=== PATIENT | male | born 1970 | race Hispanic/Latino ===

== ENCOUNTER 2017-03-30 07:51 | Emergency (ER) | payer MEDICARE ==
[2017-03-30 08:28] LABS: Basophils % (Auto) 1.2 % (0.0-1.8); Eosinophils % (Auto) 1.8 % (0.0-4.3); Hematocrit 38.4 % (35.5-45.6); Hemoglobin 12.4 gm/dl (11.8-15.2); Mean Corpuscular HGB Conc 32 % (32-34); Mean Corpuscular Hemoglobin 28 pg (28-32); Mean Corpuscular Volume 87 fl (84-94); Platelet Count 216 K/mm3 (140-440); Red Blood Count 4.42 M/mm3 (3.65-5.03); White Blood Count 13.8 K/mm3 (4.5-11.0)
[2017-03-30 09:04] LABS: BUN/Creatinine Ratio 8.53; Calcium 8.7 mg/dL (8.4-10.2); Chloride 109.5 mmol/L (98-107); Potassium 5.7 mmol/L (3.6-5.0)
[2017-03-30 11:45] LABS: Alanine Aminotransferase 9 units/L (7-56); Albumin 3.9 g/dL (3.9-5); Alkaline Phosphatase 318 units/L (35-129); Total Protein 7.8 g/dL (6.3-8.2)
[2017-03-30 11:54] LABS: Bilirubin,Direct < 0.2 mg/dL (0-0.2)
[2017-03-30 12:41] VITALS: BP 117/84
--- NOTE | 2017-03-30 12:42 | Emergency Department Report ---
HPI - General Chief Complaint: Medical Clearance Time Seen by Provider: 03/30/17 12:31 - HPI HPI: The patient is a 47-year-old male presenting with a chief complaint sickle cell disease. The patient has a history of end-stage renal disease and usually receives dialysis every Thursday was a Thursday. The patient missed his last for around the dialysis due to "personal problems." The patient states his been somewhat depressed about the possibility of him not being able to receive another renal transplant. Patient denies suicidal ideation. Patient is otherwise asymptomatic. Patient states he feels great and denies shortness of breath. Patient denies swelling Location: [see above] Duration: [see above] Quality: Asymptomatic Severity: Mild Modifying factors: [see above] Context: [see above] Mode of transportation: [not driving] ED Past Medical Hx - Past Medical History Hx Hypertension: Yes Hx GERD: Yes Hx Renal Disease: Yes Hx Arthritis: Yes (KNEES) Hx COPD: Yes Additional medical history: kidney transplant 20 yr ago, renal insufficiency - Surgical History Additional Surgical History: Renal transplant x3; bladder augmentation - Family History Family history: no significant - Social History Smoking Status: Never Smoker Substance Use Type: None - Medications Home Medications: Home Medications Medication Instructions Recorded Confirmed Last Taken Type Pravastatin Sodium 40 mg PO QDAY 08/30/13 10/09/16 09/28/16 22:00 History 40mg Sodium Bicarbonate 650 mg PO BID 08/30/13 10/09/16 09/29/16 08:00 History 650mg cycloSPORINE [SandIMMUNE] 75 mg PO BID 08/30/13 10/09/16 09/29/16 08:00 History Prednisone 10 mg PO DAILY 12/08/14 10/09/16 09/29/16 08:00 History 10mg Ergocalciferol [Vitamin D2] 1 cap PO QWEEK 08/20/16 10/09/16 09/29/16 08:00 History 1 CAP Zolpidem Tartrate 5 mg PO QDAY 08/20/16 10/09/16 09/25/16 History HYDROcodone/APAP 7.5-325 [[place] 1 each PO Q6HR PRN #60 tablet 08/25/16 10/09/16 09/17/16 Rx 7.5-325 mg TAB] Vitamin A 50,000 unit PO DAILY 14 Days 09/25/16 10/09/16 09/29/16 08:00 Rx [id number] Apixaban [Eliquis] 5 mg PO BID 09/29/16 10/09/16 09/28/16 22:00 History 5MG Gabapentin [Neurontin] 100 mg PO Q8HR #90 capsule 10/17/16 Unknown Rx amLODIPine [Norvasc] 10 mg PO QDAY #30 tablet 10/17/16 Unknown Rx ED Review of Systems ROS: Stated complaint: DIALYSIS Other details as noted in HPI Comment: All other systems reviewed and negative Constitutional: denies: chills, fever Eyes: denies: eye pain, eye discharge, vision change ENT: denies: ear pain, throat pain Respiratory: denies: cough, shortness of breath, wheezing Cardiovascular: denies: chest pain, palpitations Endocrine: no symptoms reported Gastrointestinal: denies: abdominal pain, nausea, diarrhea Genitourinary: denies: urgency, dysuria Musculoskeletal: denies: back pain, joint swelling, arthralgia Skin: denies: rash, lesions Neurological: denies: headache, weakness, paresthesias Psychiatric: denies: anxiety, depression Hematological/Lymphatic: denies: easy bleeding, easy bruising Physical Exam - Physical Exam Vital Signs: Vital Signs 03/30/17 08:08 Temperature 97.9 F Pulse Rate 78 Respiratory 16 Rate Blood Pressure 134/86 O2 Sat by Pulse 100 Oximetry Physical Exam: GENERAL: The patient is well-developed well-nourished male lying on stretcher not appearing to be in acute distress. [] HEENT: Normocephalic. Atraumatic. Extraocular motions are intact. Patient has moist mucous membranes. NECK: Supple. Trachea midline CHEST/LUNGS: Clear to auscultation. There is no respiratory distress noted. HEART/CARDIOVASCULAR: Regular. There is no tachycardia. There is no gallop rub or murmur. ABDOMEN: Abdomen is soft, nontender. Patient has normal bowel sounds. There is no abdominal distention. SKIN: There is no rash. There is no edema. There is no diaphoresis. NEURO: The patient is awake, alert, and oriented. The patient is cooperative. The patient has normal speech MUSCULOSKELETAL: There is no evidence of acute injury. ED Course Vital Signs 03/30/17 08:08 Temperature 97.9 F Pulse Rate 78 Respiratory 16 Rate Blood Pressure 134/86 O2 Sat by Pulse 100 Oximetry - Consultations Consultation #1: 03/30/17 12:38 Nephrology paged 03/30/17 12:[address] Kiser-states the patient does not need to be admitted for emergent dialysis. States the patient may return to his dialysis center today for dialysis. Consultation #2: 03/30/17 12:54 Case discussed with the dialysis center charge nurse ([facility] in [place])- states they can dialyze the patient today at 14:00. Patient was notified of this and understands that he must immediately go to dialysis. ED Medical Decision Making - Lab Data Result diagrams: 03/30/17 08:17 03/30/17 08:17 Laboratory Tests 03/30/17 03/30/17 03/30/17 08:17 08:17 08:17 WBC 13.8 H RBC 4.42 Hgb 12.4 Hct 38.4 MCV 87 MCH 28 MCHC 32 RDW 16.0 H Plt Count 216 Lymph % (Auto) 27.8 Moca % (Auto) 9.6 H Eos % (Auto) 1.8 Baso % (Auto) 1.2 Lymph # 3.8 Moca # 1.3 H Eos # 0.2 Baso # 0.2 H Seg Neutrophils % 59.6 Seg Neutrophils # 8.2 H Sodium 136 L Potassium 5.7 H Chloride 109.5 H Carbon Dioxide 10 L Anion Gap 22 BUN 64 H Creatinine 7.5 H Estimated GFR 8 BUN/Creatinine Ratio 8.53 Glucose 101 H Calcium 8.7 Phosphorus Magnesium 1.70 Total Bilirubin Direct Bilirubin AST ALT Alkaline Phosphatase Total Protein Albumin Albumin/Globulin Ratio 03/30/17 03/30/17 08:17 08:17 WBC RBC Hgb Hct MCV MCH MCHC RDW Plt Count Lymph % (Auto) Moca % (Auto) Eos % (Auto) Baso % (Auto) Lymph # Moca # Eos # Baso # Seg Neutrophils % Seg Neutrophils # Sodium Potassium Chloride Carbon Dioxide Anion Gap BUN Creatinine Estimated GFR BUN/Creatinine Ratio Glucose Calcium Phosphorus 5.40 H Magnesium Total Bilirubin 0.30 Direct Bilirubin < 0.2 AST 12 ALT 9 Alkaline Phosphatase 318 H Total Protein 7.8 Albumin 3.9 Albumin/Globulin Ratio 1.0 - Differential Diagnosis end-stage renal disease Critical care attestation.: If time is entered above; I have spent that time in minutes in the direct care of this critically ill patient, excluding procedure time. ED Disposition Clinical Impression: End-stage renal disease needing dialysis, Hyperkalemia, Hyperphosphatemia Disposition: DC/TX ANOTHER TYPE HEALTHCARE Is pt being admited?: No Does the pt Need Aspirin: No Condition: Stable Instructions: Chronic Kidney Disease (ED) Additional Instructions: You are to go directly to your dialysis center as they are expecting you for dialysis at 2 PM. Return to the emergency department immediately should you develop worsening symptoms, fever, inability to tolerate food or liquid or any other concerns. Time of Disposition: 12:42 (nephrology paged)
[2017-03-30] MEDS ORDERED: CALCIUM CHLORIDE IV ONE ×2 (12:49→12:54)
[2017-03-30] MEDS ORDERED: SODIUM BICARBONATE IV ONE ×3 (12:49→14:00)
[2017-03-30] MEDS ORDERED: NACL 0.9% 100 ML ONE (12:52)
[2017-03-30] MEDS ORDERED: CALCIUM GLUCONATE 1,000 MG in NACL 0.9% 100 ML IV ONE (12:53)
[2017-03-30] MEDS ORDERED: CALCIUM GLUCONATE IV ONE (12:53)
== END 2017-03-30 13:32 | disposition other institution (70) ==
LOC: ED 07:51
DX: I12.0 Hypertensive chronic kidney disease with stage 5 chronic kidney disease or end stage renal disease (principal); N18.6 End stage renal disease; Z99.2 Dependence on renal dialysis; K21.9 Gastro-esophageal reflux disease without esophagitis; J44.9 Chronic obstructive pulmonary disease, unspecified; Z94.0 Kidney transplant status
CPT/HCPCS: 36415; 80048; 80074; 83735; 84100; 85025; 96365; 96375; 99284; J0610

== ENCOUNTER 2019-06-20 15:26 | Inpatient (IN) | payer MEDICARE ==
--- NOTE | 2019-06-20 17:33 | Emergency Department Report ---
ED Seizure HPI - General Chief Complaint: Seizure Stated Complaint: SEIZURE Time Seen by Provider: 06/20/19 17:17 Source: patient Mode of arrival: Stretcher Limitations: No Limitations - History of Present Illness Initial Comments: Mr. Haynes is a 49-year-old male with history of end-stage renal disease on dialysis for the past 2 years. He presents with seizure activity. He was recently discharged from [facility] today. He was admitted for for treatment/management of occluded AV access located at his right medial thigh. He required three operations to address the occluded access. His mother is at the bedside. Mother provided history. Mother stated he "flat lined" for a few minutes. He did require ICU admission. Today he felt out of sorts. Mother stated that he was more calm than normal. He was alert and oriented. However his disposition appeared much different. He is normally impatient. However today he was calm with minimal conversation. While in the car, she noticed extremity flailing. He was foaming at the mouth with seizure activity. EMS was called. Patient does not remember the scenario. He is now awake alert drowsy. He has postoperative pain in his right thigh. MD Complaint: seizure -: Sudden, This afternoon Description of Episode: loss of consciousness, tonic-clonic movement Witnessed:: Yes Trauma: No Seizure History: none Place: other (while in car leaving hospital) Associated Symptoms: other (recent illness) Treatments Prior to Arrival: none - Related Data Home Medications Medication Instructions Recorded Confirmed Last Taken Pravastatin Sodium 40 mg PO QDAY 08/30/13 10/09/16 09/28/16 22:00 40mg Sodium Bicarbonate 650 mg PO BID 08/30/13 10/09/16 09/29/16 08:00 650mg cycloSPORINE [SandIMMUNE] 75 mg PO BID 08/30/13 10/09/16 09/29/16 08:00 predniSONE [Prednisone] 10 mg PO DAILY 12/08/14 10/09/16 09/29/16 08:00 10mg Ergocalciferol [Vitamin D2] 1 cap PO QWEEK 08/20/16 10/09/16 09/29/16 08:00 1 CAP Zolpidem Tartrate 5 mg PO QDAY 08/20/16 10/09/16 09/25/16 Apixaban [Eliquis] 5 mg PO BID 11/10/09/16 09/28/16 22:00 5MG Previous Rx's Medication Instructions Recorded Last Taken Type HYDROcodone/APAP 7.5-325 [[place] 1 each PO Q6HR PRN #60 tablet 08/25/16 09/17/16 Rx 7.5-325 mg TAB] Vitamin A 50,000 unit PO DAILY 14 Days 09/25/16 09/29/16 08:00 Rx capsule [id number] Gabapentin [Neurontin] 100 mg PO Q8HR #90 capsule 10/17/16 Unknown Rx amLODIPine [Norvasc] 10 mg PO QDAY #30 tablet 10/17/16 Unknown Rx Allergies Allergy/AdvReac Type Severity Reaction Status Date / Time erythromycin base Allergy Unknown Unknown Verified 03/30/17 08:08 ED Review of Systems ROS: Stated complaint: SEIZURE Other details as noted in HPI Comment: All other systems reviewed and negative Constitutional: malaise. denies: fever Neurological: denies: headache, weakness, numbness, paresthesias, abnormal gait ED Past Medical Hx - Past Medical History Previous Medical History?: Yes Hx Hypertension: Yes Hx Congestive Heart Failure: No Hx Diabetes: No Hx GERD: Yes Hx Renal Disease: Yes Hx Arthritis: Yes (KNEES) Hx Asthma: No Hx COPD: Yes Additional medical history: kidney transplant 20 yr ago, renal insufficiency - Surgical History Additional Surgical History: Renal transplant x3; bladder augmentation - Social History Smoking Status: Never Smoker Substance Use Type: None - Medications Home Medications: Home Medications Medication Instructions Recorded Confirmed Last Taken Type Pravastatin Sodium 40 mg PO QDAY 08/30/13 10/09/16 09/28/16 22:00 History 40mg Sodium Bicarbonate 650 mg PO BID 08/30/13 10/09/16 09/29/16 08:00 History 650mg cycloSPORINE [SandIMMUNE] 75 mg PO BID 08/30/13 10/09/16 09/29/16 08:00 History predniSONE [Prednisone] 10 mg PO DAILY 12/08/14 10/09/16 09/29/16 08:00 History 10mg Ergocalciferol [Vitamin D2] 1 cap PO QWEEK 08/20/16 10/09/16 09/29/16 08:00 History 1 CAP Zolpidem Tartrate 5 mg PO QDAY 08/20/16 10/09/16 09/25/16 History HYDROcodone/APAP 7.5-325 [[place] 1 each PO Q6HR PRN #60 tablet 08/25/16 10/09/16 09/17/16 Rx 7.5-325 mg TAB] Vitamin A 50,000 unit PO DAILY 14 Days 09/25/16 10/09/16 09/29/16 08:00 Rx capsule [id number] Apixaban [Eliquis] 5 mg PO BID 09/29/16 10/09/16 09/28/16 22:00 History 5MG Gabapentin [Neurontin] 100 mg PO Q8HR #90 capsule 10/17/16 Unknown Rx amLODIPine [Norvasc] 10 mg PO QDAY #30 tablet 10/17/16 Unknown Rx ED Physical Exam - General Limitations: No Limitations General appearance: alert, in no apparent distress - Head Head exam: Present: atraumatic, normocephalic - Eye Eye exam: Present: normal appearance - ENT ENT exam: Present: mucous membranes moist - Neck Neck exam: Present: normal inspection, full ROM - Respiratory Respiratory exam: Present: normal lung sounds bilaterally. Absent: respiratory distress, wheezes, rales, rhonchi - Cardiovascular Cardiovascular Exam: Present: regular rate, normal rhythm, normal heart sounds. Absent: systolic murmur, diastolic murmur, rubs, gallop - GI/Abdominal GI/Abdominal exam: Present: soft, normal bowel sounds. Absent: distended, tenderness, guarding, rebound - Rectal Rectal exam: Present: deferred - Extremities Exam Extremities exam: Present: other (right medial thigh: Sutures in place surgical incision site clean dry and intact) - Back Exam Back exam: Present: normal inspection - Neurological Exam Neurological exam: Present: alert, oriented X3 - Psychiatric Psychiatric exam: Present: normal affect, normal mood - Skin Skin exam: Present: warm, dry, intact, normal color. Absent: rash ED Course Vital Signs 06/20/19 06/21/19 06/21/19 16:46 00:16 00:30 Temperature 98.5 F Pulse Rate 84 80 80 Respiratory 16 14 13 Rate Blood Pressure 97/46 101/56 101/56 O2 Sat by Pulse 96 96 98 Oximetry 06/21/19 06/21/19 06/21/19 00:40 00:50 01:00 Temperature Pulse Rate 81 88 79 Respiratory 14 14 14 Rate Blood Pressure 101/56 101/56 101/56 O2 Sat by Pulse 97 97 95 Oximetry 06/21/19 06/21/19 06/21/19 01:10 01:20 01:30 Temperature Pulse Rate 82 81 84 Respiratory 14 13 14 Rate Blood Pressure 101/56 101/56 101/56 O2 Sat by Pulse 98 100 99 Oximetry 06/21/19 06/21/19 01:40 01:50 Temperature Pulse Rate 85 84 Respiratory 14 14 Rate Blood Pressure 101/56 101/56 O2 Sat by Pulse 98 99 Oximetry ED Medical Decision Making - Lab Data Result diagrams: 06/21/19 05:55 06/21/19 05:55 - Medical Decision Making First time seizure, recentl, hospital discharge today, hx of cardiac arrest during recent hospitalization differential diagnosis includes hypoxia, hyperglycemia, uremia, hepatic encephalopathy, electrolyte imbalance, adverse effect of medication, MASTER RIGGER neoplasm, CVA, ICH Considering recent hospitalization and cardiac arrest, Mr. Haynes is at high risk for major adverse medical event. I have asked the hospitalist service to admit for further evaluation and monitoring. CT head results pending at this time. Patient has refused the exam due to postoperative pain. Critical care attestation.: If time is entered above; I have spent that time in minutes in the direct care of this critically ill patient, excluding procedure time. ED Disposition Clinical Impression: Seizure, ESRD (end stage renal disease) on dialysis Disposition: OP ADMIT IP TO THIS HOSP Is pt being admited?: Yes Does the pt Need Aspirin: No Condition: Stable
[2019-06-20 18:23] LABS: Basophils # (Auto) 0.1 K/mm3 (0.0-0.1); Eosinophils # (Auto) 0.2 K/mm3 (0.0-0.4); Eosinophils % (Auto) 1.6 % (0.0-4.3); Hematocrit 25.2 % (35.5-45.6); Hemoglobin 8.7 gm/dl (11.8-15.2); Lymphocytes # (Auto) 1.4 K/mm3 (1.2-5.4); Lymphocytes % (Auto) 10.3 % (13.4-35.0); Mean Corpuscular HGB Conc 35 % (32-34); Mean Corpuscular Volume 89 fl (84-94); Monocytes # (Auto) 0.8 K/mm3 (0.0-0.8); Monocytes % (Auto) 5.5 % (0.0-7.3); Platelet Count 249 K/mm3 (140-440); Red Blood Count 2.82 M/mm3 (3.65-5.03)
[2019-06-20] MEDS ORDERED: ZOFRAN IV ONE (18:30)
[2019-06-20] MEDS ORDERED: MORPHINE IV ONE ×2 (18:30→19:12)
[2019-06-20 18:38] LABS: Albumin 3.8 g/dL (3.9-5); BUN/Creatinine Ratio 7; Blood Urea Nitrogen 40 mg/dL (9-20); Calcium 8.8 mg/dL (8.4-10.2); Hemolysis Index 79
[2019-06-20 18:42] LABS: Alanine Aminotransferase < 5 units/L (7-56)
[2019-06-20] MEDS ORDERED: KEPPRA 1,000 MG/NS 0.75% 100ML 1,000 MG/100 ML BAG IV ONE (19:28)
--- NOTE | 2019-06-20 21:35 | Cat Scan Report ---
CT BRAIN: 06/20/2019 INDICATION / CLINICAL INFORMATION: Seizure. COMPARISON: None available. FINDINGS: BRAIN/INTRACRANIAL STRUCTURES: Unenhanced CT images of the brain demonstrate no evidence of acute int racranial abnormality. Ventricles and sulci are normal in size and shape for a patient of this age. There is no evidence of hemorrhage or mass. There are no abnormal extra-axial fluid collections. EXTRACRANIAL STRUCTURES: Unremarkable. IMPRESSION: No acute abnormality. All CT scans at this location are performed using dose reduction to ALARA by means of automated expos ure control. Signer Name: Aaron Sapp MD Signed: 06/20/2019 9:30 PM Workstation Name: [id number]
[2019-06-20] MEDS ORDERED: ATIVAN IV PRN (22:03)
--- NOTE | 2019-06-20 22:04 | History and Physical Report ---
History of Present Illness Date of examination: 06/20/19 History of present illness: 49-year-old man with a history of hypertension, end-stage renal disease on dialysis Thursday, Thursday, Thursday, COPD, YFN was brought to emergency room because he had a seizure on his way home. Patient was just discharged from [facility] today, mom at bedside state that he had a indicated hospital course included cardiac arrest. He is sedated. Review of system unobtainable PAST MEDICAL HISTORY:hypertension, end-stage renal disease on dialysis , COPD, YFN PAST SURGICAL HISTORY: Bladder surgery, kidney transplant, AV fistula FAMILY HISTORY:hypertension, diabetes SOCIAL HISTORY: Denies tobacco, drugs, social alcohol Medications and Allergies Allergies Allergy/AdvReac Type Severity Reaction Status Date / Time erythromycin base Allergy Unknown Unknown Verified 03/30/17 08:08 Home Medications Medication Instructions Recorded Confirmed Last Taken Type Pravastatin Sodium 40 mg PO QDAY 08/30/13 10/09/16 09/28/16 22:00 History 40mg Sodium Bicarbonate 650 mg PO BID 08/30/13 10/09/16 09/29/16 08:00 History 650mg cycloSPORINE [SandIMMUNE] 75 mg PO BID 08/30/13 10/09/16 09/29/16 08:00 History predniSONE [Prednisone] 10 mg PO DAILY 12/08/14 10/09/16 09/29/16 08:00 History 10mg Ergocalciferol [Vitamin D2] 1 cap PO QWEEK 08/20/16 10/09/16 09/29/16 08:00 History 1 CAP Zolpidem Tartrate 5 mg PO QDAY 08/20/16 10/09/16 09/25/16 History HYDROcodone/APAP 7.5-325 [[place] 1 each PO Q6HR PRN #60 tablet 08/25/16 10/09/16 09/17/16 Rx 7.5-325 mg TAB] Vitamin A 50,000 unit PO DAILY 14 Days 09/25/16 10/09/16 09/29/16 08:00 Rx capsule [id number] Apixaban [Eliquis] 5 mg PO BID 09/29/16 10/09/16 09/28/16 22:00 History 5MG Gabapentin [Neurontin] 100 mg PO Q8HR #90 capsule 10/17/16 Unknown Rx amLODIPine [Norvasc] 10 mg PO QDAY #30 tablet 10/17/16 Unknown Rx Exam - Physical Exam Narrative exam: General Apperance: The patient sitting in bed no acute distress HEENT: Normocephalic, atraumatic. Pupils equally round and reactive to light, extraocular movement intact, and no sclericterus or JVD or thyromegaly or nodule. Neck supple, no carotid bruit, mucous membranes moist, no exudate or erythema Heart: S1-S2, regular is rhythm Lungs: Clear to auscultation bilaterally, breathing comfortable Abdomen: Positive bowel sounds, soft, nontender, nondistended, no organomegaly Extremities: No edema cyanosis clubbing Skin: no rash, nodule, warm and dry Neuro:CN 2 -12 intact, motry/sensory intact, speech is fluent - Constitutional Vitals: Temp Pulse Resp BP Pulse Ox 98.5 F 84 16 97/46 96 06/20/19 16:46 06/20/19 16:46 06/20/19 16:46 06/20/19 16:46 06/20/19 16:46 Results - Labs CBC & Chem 7: 06/21/19 05:55 06/20/19 17:39 Labs: Abnormal lab results 06/20/19 06/20/19 06/20/19 Range/Units 17:39 17:39 17:39 WBC 13.6 H (4.5-11.0) K/mm3 RBC 2.82 L (3.65-5.03) M/mm3 Hgb 8.7 L (11.8-15.2) gm/dl Hct 25.2 L (35.5-45.6) % MCHC 35 H (32-34) % Lymph % (Auto) 10.3 L (13.4-35.0) % Seg Neutrophils % 81.6 H (40.0-70.0) % Seg Neutrophils # 11.1 H (1.8-7.7) K/mm3 Sodium 133 L (137-145) mmol/L Chloride 91.4 L (98-107) mmol/L BUN 40 H (9-20) mg/dL Creatinine 6.1 H (0.8-1.5) mg/dL Glucose 105 H (75-100) mg/dL AST < 5 L (5-40) units/L ALT < 5 L (7-56) units/L Ammonia (25-60) umol/L Albumin 3.8 L (3.9-5) g/dL Salicylates < 0.3 L (2.8-20.0) mg/dL Acetaminophen (10.0-30.0) ug/mL 06/20/19 06/20/19 Range/Units 17:39 17:39 WBC (4.5-11.0) K/mm3 RBC (3.65-5.03) M/mm3 Hgb (11.8-15.2) gm/dl Hct (35.5-45.6) % MCHC (32-34) % Lymph % (Auto) (13.4-35.0) % Seg Neutrophils % (40.0-70.0) % Seg Neutrophils # (1.8-7.7) K/mm3 Sodium (137-145) mmol/L Chloride (98-107) mmol/L BUN (9-20) mg/dL Creatinine (0.8-1.5) mg/dL Glucose (75-100) mg/dL AST (5-40) units/L ALT (7-56) units/L Ammonia 83.0 H (25-60) umol/L Albumin (3.9-5) g/dL Salicylates (2.8-20.0) mg/dL Acetaminophen < 5.0 L (10.0-30.0) ug/mL - Imaging and Cardiology CT Scan - head: report reviewed Assessment and Plan Assessment New-onset seizure Endstage renal disease on dialysis Sleep apnea COPD, stable Plan Admit to medicine IV Ativan as needed for seizure Consult neurology, obtain EEG Consult renal Continue appropriate outpatient medications Start CPAP, DVT prophylaxis Discussed with mother at bedside
[2019-06-21] MEDS ORDERED: TYLENOL PO PRN (00:07)
[2019-06-21] MEDS ORDERED: SODIUM CHLORIDE FLUSH SYRINGE 10 ML IV PRN (00:07)
[2019-06-21] MEDS ORDERED: ZOFRAN IV PRN (00:07)
[2019-06-21] MEDS: DUONEB *Not for PRN Use IH SCH ×5 (02:13→20:48)
[2019-06-21 06:12] LABS: Basophils # (Auto) 0.1 K/mm3 (0.0-0.1); Basophils % (Auto) 1.3 % (0.0-1.8); Eosinophils # (Auto) 0.2 K/mm3 (0.0-0.4); Eosinophils % (Auto) 1.7 % (0.0-4.3); Hematocrit 24.9 % (35.5-45.6); Hemoglobin 8.6 gm/dl (11.8-15.2); Lymphocytes # (Auto) 1.7 K/mm3 (1.2-5.4); Lymphocytes % (Auto) 17.1 % (13.4-35.0); Mean Corpuscular HGB Conc 35 % (32-34); Mean Corpuscular Volume 90 fl (84-94); Monocytes # (Auto) 0.7 K/mm3 (0.0-0.8); Monocytes % (Auto) 6.6 % (0.0-7.3); Platelet Count 269 K/mm3 (140-440); Red Blood Count 2.76 M/mm3 (3.65-5.03); Red Cell Distribution Width 14.5 % (13.2-15.2)
[2019-06-21 06:36] LABS: Calcium 8.5 mg/dL (8.4-10.2)
--- NOTE | 2019-06-21 09:08 | Consultation ---
History of Present Illness - History of Present Illness Thank you for the consultation ! Patient was evaluated today My assessment and plan are as follows; End-stage renal disease: Patient is currently on hemodialysis, and will need to continue with hemodialysis on Thursday and Thursday, schedule. Anemia and end-stage renal disease: Monitor hemoglobin and hematocrit erythropoietin as needed. Workup as required Secondary hyperparathyroidism: Check phosphorus and PTH level periodically, binders as needed Dialysis access: It is currently in appetite graft Currently working well Malnutrition risk: High consider high-protein diet dietitian evaluation and follow-up in general 1.5 g protein per KG body weight Fluid restriction: 1200 cc per day not to exceed more than that Adequately counseled and educated about other hospital related issues as well Labs were discussed with patient and simple Maori Patient does appear to have good understanding of all the dialysis related issues Patient was adequately counseled and educated regarding multiple renal related issues. Overall prognosis remains guarded at this time All renal related questions were answered and simple Maori pertinent lab studies as well as imaging results were also discussed with patient We will continue to follow and make recommendations from renal standpoint. Thank you for the consultation Author: Jian Merritt M.D. [facility], [address] [place] [address] Tel; [phone] Source of information: From patient History of present illness Patient is a 89-year-old male who has been admitted here after seizure activity. Patient was recently admitted at [facility] for clotted AV graft in his right thigh, events of this hospitalization noted Currently he is alert awake resting comfortably getting his breathing treatment His normal dialysis days are Thursday Also patient was placed for management of end-stage renal disease Past medical history: End-stage renal disease Failed kidney transplant Seizure disorder Hypertension Chronic metabolic acidosis Hyperlipidemia chronic anticoagulation Current allergies: Reviewed from the current chart Social history: Reviewed from the current chart Family history: Reviewed from the current chart Review of system: Positive for seizure disorder, new onset All other review of systems negative Physical examination Vitals: Reviewed General: No acute distress HEENT: Oral mucosa moist no pallor or icterus Neck: Supple without any JVD thyromegaly or nodular mass Chest: Clear to auscultation Heart: Regular rate and rhythm S1-S2 heard no S3-S4 Abdomen: Soft nontender, bowel sounds present no renal bruit no suprapubic masses no CVA tenderness noted Extremity: Minimal edema dry skin no peripheral cyanosis patient has good thrill and bruit in the right upper thigh graft Endocrine: Thyroid not enlarged Psychiatric: No agitation and aggression noted Musculoskeletal: No joint effusion noted Labs and x-rays: Reviewed from this admission Medications and Allergies Allergies Allergy/AdvReac Type Severity Reaction Status Date / Time erythromycin base Allergy Unknown Unknown Verified 03/30/17 08:08 Home Medications Medication Instructions Recorded Confirmed Last Taken Type Pravastatin Sodium 40 mg PO QDAY 08/30/13 10/09/16 09/28/16 22:00 History 40mg Sodium Bicarbonate 650 mg PO BID 08/30/13 10/09/16 09/29/16 08:00 History 650mg cycloSPORINE [SandIMMUNE] 75 mg PO BID 08/30/13 10/09/16 09/29/16 08:00 History Ergocalciferol [Vitamin D2] 1 cap PO QWEEK 08/20/16 10/09/16 09/29/16 08:00 Hi story 1 CAP Zolpidem Tartrate 5 mg PO QDAY 08/20/16 10/09/16 09/25/16 History HYDROcodone/APAP 7.5-325 [[place] 1 each PO Q6HR PRN #60 tablet 08/25/16 10/09/16 09/17/16 Rx 7.5-325 mg TAB] Vitamin A 50,000 unit PO DAILY 14 Days 09/25/16 10/09/16 09/29/16 08:00 Rx capsule [id number] Apixaban [Eliquis] 5 mg PO BID 09/29/16 10/09/16 09/28/16 22:00 History 5MG Gabapentin [Neurontin] 100 mg PO Q8HR #90 capsule 10/17/16 Unknown Rx amLODIPine [Norvasc] 10 mg PO QDAY #30 tablet 10/17/16 Unknown Rx levETIRAcetam [Keppra TAB] 500 mg PO BID #90 tablet 06/22/19 Unknown Rx Active Meds: Active Medications Acetaminophen (Tylenol) 650 mg PO Q4H PRN PRN Reason: Pain MILD(1-3)/Fever >100.5/STEELE Albuterol/Ipratropium (Duoneb *Not For Prn Use*) 1 ampul IH Q6HRT KAREN Last Admin: 06/21/19 02:13 Dose: Not Given Documented by: Enoxaparin Sodium (Lovenox) 30 mg SUB-Q QDAY [facility] Lorazepam (Ativan) 1 mg IV Q4H PRN PRN Reason: Seizures Ondansetron HCl (Zofran) 4 mg IV Q4H PRN PRN Reason: Nausea And Vomiting Sodium Chloride (Sodium Chloride Flush Syringe 10 Ml) 10 ml IV BID [facility] Sodium Chloride (Sodium Chloride Flush Syringe 10 Ml) 10 ml IV PRN PRN PRN Reason: LINE FLUSH Exam - Vital Signs Vital signs: Vital Signs Temp Pulse Resp BP Pulse Ox 98.5 F 84 16 97/46 96 06/20/19 16:46 06/20/19 16:46 06/20/19 16:46 06/20/19 16:46 06/20/19 16:46 Results - Lab Results 06/21/19 05:55 06/21/19 05:55 Most recent lab results Calcium 8.5 mg/dL (8.4-10.2) 06/21/19 05:55
[2019-06-21] MEDS ORDERED: LOVENOX SUB-Q SCH (10:00)
[2019-06-21] MEDS: SODIUM CHLORIDE FLUSH SYRINGE 10 ML IV SCH ×2 (10:39→23:14)
[2019-06-21] MEDS ORDERED: NORVASC PO SCH (12:00)
[2019-06-21] MEDS: NORVASC PO SCH (13:04)
[2019-06-21] MEDS: NORCO 7.5/325 PO PRN (13:07)
[2019-06-21] MEDS: ELIQUIS PO SCH ×2 (13:07→21:41)
[2019-06-21] MEDS: NEURONTIN PO SCH ×2 (13:08→21:41)
--- NOTE | 2019-06-21 14:23 | Consultation ---
History of Present Illness Consult date: 06/21/19 Reason for Consult: Seizure Chief complaint: Seizure History of present illness: Patient is a 49 y/o man w/ a h/o HTN, ESRD on HD, h/o renal transplant, YFN, COPD. He was going home yesterday from dialysis, when his mother noted that he began convulsing. She also noted that he was "foaming at the mouth." Upon arrival at ER, patient's mental status had improved, however he remained drowsy. Today, patient has returned to baseline of mental status. He denies having had a seizure in the past. Patient was given keppra in ER. Past History Past Medical History: hypertension (YFN, COPD, ESRD on HD) Past Surgical History: Other (renal transplant) Social history: no significant social history Family history: no significant family history Medications and Allergies Allergies Allergy/AdvReac Type Severity Reaction Status Date / Time erythromycin base Allergy Unknown Unknown Verified 03/30/17 08:08 Home Medications Medication Instructions Recorded Confirmed Last Taken Type Pravastatin Sodium 40 mg PO QDAY 08/30/13 10/09/16 09/28/16 22:00 History 40mg Sodium Bicarbonate 650 mg PO BID 08/30/13 10/09/16 09/29/16 08:00 History 650mg cycloSPORINE [SandIMMUNE] 75 mg PO BID 08/30/13 10/09/16 09/29/16 08:00 History predniSONE [Prednisone] 10 mg PO DAILY 12/08/14 10/09/16 09/29/16 08:00 History 10mg Ergocalciferol [Vitamin D2] 1 cap PO QWEEK 08/20/16 10/09/16 09/29/16 08:00 History 1 CAP Zolpidem Tartrate 5 mg PO QDAY 08/20/16 10/09/16 09/25/16 History HYDROcodone/APAP 7.5-325 [[place] 1 each PO Q6HR PRN #60 tablet 08/25/16 10/09/16 09/17/16 Rx 7.5-325 mg TAB] Vitamin A 50,000 unit PO DAILY 14 Days 09/25/16 10/09/16 09/29/16 08:00 Rx capsule [id number] Apixaban [Eliquis] 5 mg PO BID 09/29/16 10/09/16 09/28/16 22:00 History 5MG Gabapentin [Neurontin] 100 mg PO Q8HR #90 capsule 10/17/16 Unknown Rx amLODIPine [Norvasc] 10 mg PO QDAY #30 tablet 10/17/16 Unknown Rx Active Meds: Active Medications Acetaminophen (Tylenol) 650 mg PO Q4H PRN PRN Reason: Pain MILD(1-3)/Fever >100.5/STEELE Acetaminophen/Hydrocodone Bitart ([place] 7.5/325) 1 each PO Q6HR PRN PRN Reason: Pain, Moderate (4-6) Last Admin: 06/21/19 13:07 Dose: 1 each Documented by: Albuterol/Ipratropium (Duoneb *Not For Prn Use*) 1 ampul IH Q6HRT [facility] Last Admin: 06/21/19 09:58 Dose: 1 ampul Documented by: Amlodipine Besylate (Norvasc) 10 mg PO DAILY [facility] Last Admin: 06/21/19 13:04 Dose: Not Given Documented by: Apixaban (Eliquis) 5 mg PO BID [facility]; Protocol Last Admin: 06/21/19 13:07 Dose: 5 mg Documented by: Ergocalciferol (Vitamin D2) 50,000 unit PO QWEEK [facility] Gabapentin (Neurontin) 100 mg PO Q8HR [facility] Last Admin: 06/21/19 13:08 Dose: 100 mg Documented by: Lorazepam (Ativan) 1 mg IV Q4H PRN PRN Reason: Seizures Miscellaneous Medication (Vitamin A [Vitamin A]) 50,000 unit PO DAILY [facility] Ondansetron HCl (Zofran) 4 mg IV Q4H PRN PRN Reason: Nausea And Vomiting Pravastatin Sodium (Pravachol) 40 mg PO QDAY [facility] Sodium Bicarbonate (Sodium Bicarbonate) 650 mg PO BID [facility] Sodium Chloride (Sodium Chloride Flush Syringe 10 Ml) 10 ml IV BID [facility] Last Admin: 06/21/19 10:39 Dose: 10 ml Documented by: Sodium Chloride (Sodium Chloride Flush Syringe 10 Ml) 10 ml IV PRN PRN PRN Reason: LINE FLUSH Review of Systems All systems: negative Neurological: convulsions Physical Examination - Vital Signs Vital Signs: Vital Signs Temp Pulse Resp BP Pulse Ox 98.5 F 84 16 97/46 96 06/20/19 16:46 06/20/19 16:46 06/20/19 16:46 06/20/19 16:46 06/20/19 16:46 - Constitutional General appearance: comfortable - EENT EENT: Present: ATNC, PERRL, mucous membranes moist, hearing intact, vision intact - Respiratory Respiratory: Present: lungs clear, normal breath sounds - Cardiovascular Cardiovascular: Present: regular rate, normal S1, normal S2 Extremities: Present: no peripheral edema bilatateraly, no clubbing, cyanosis - Gastrointestinal Gastrointestinal: Present: normoactive bowel sounds, soft, non-tender - Integumentary Integumentary: Present: normal - Neurologic Cranial nerve examination: PERRL, EOMI, VFF, V1/V2/V3 grossly intact, face symmetric, tongue midline, intact shoulder shrug Speech examination: intact Sensorimotor examination: intact Motor examination - right side: 5/5: biceps, triceps, wrist flexion, wrist extension, gyn, hip flexors, knee extensors, dorsiflexion, toe extension (EHL) Motor examination - left side: 5/5: biceps, triceps, wrist flexion, wrist extension, gyn, hip flexors, knee extensors, dorsiflexion, toe extension (EHL), plantarflexion Detailed sensory examination: intact, light touch Reflexes: 2+: ankle, bicep, knee, tricep Cerebellar examination: other (intact FTN and HTS) - Musculoskeletal Musculoskeletal: Present: no fluid collection, no pain, normal range of motion - Psychiatric Psychiatric: Present: mood/affect appropriate Results - Laboratory Findings CBC and BMP: 06/21/19 05:55 06/21/19 05:55 Abnormal Lab Findings: Abnormal Labs 06/20/19 06/20/19 06/20/19 17:39 17:39 17:39 WBC 13.6 H RBC 2.82 L Hgb 8.7 L Hct 25.2 L MCHC 35 H Lymph % (Auto) 10.3 L Seg Neutrophils % 81.6 H Seg Neutrophils # 11.1 H Sodium 133 L Chloride 91.4 L BUN 40 H Creatinine 6.1 H Glucose 105 H AST < 5 L ALT < 5 L Ammonia Albumin 3.8 L Salicylates < 0.3 L Acetaminophen 06/20/19 06/20/19 06/21/19 17:39 17:39 05:55 WBC RBC 2.76 L Hgb 8.6 L Hct 24.9 L MCHC 35 H Lymph % (Auto) Seg Neutrophils % 73.3 H Seg Neutrophils # Sodium Chloride BUN Creatinine Glucose AST ALT Ammonia 83.0 H Albumin Salicylates Acetaminophen < 5.0 L 06/21/19 05:55 WBC RBC Hgb Hct MCHC Lymph % (Auto) Seg Neutrophils % Seg Neutrophils # Sodium 135 L Chloride 93.3 L BUN 49 H Creatinine 7.5 H Glucose AST ALT Ammonia Albumin Salicylates Acetaminophen Assessment and Plan Patient is a 49 y/o man w/ a h/o HTN, ESRD on HD, h/o renal transplant, YFN, COPD, who p/w a seizure. According to the patient's clinical findings, it is likely that he has had a seizure. Supporting this diagnosis is the semiology of the event described. Further, patient had just finished dialysis, which could cause change in electrolyte balance, and lower seizure threshold. Plan: 1. Seizure: EEG pending. CT head unremarkable. Likely etiology is change in electrolytes with recent HD. Discussed with patient regarding starting AED, and patient has agreed with the plan. Discussed with patient regarding seizure precautions and no driving until cleared by DMV/DPS, and patient agreed and accepted this. Will start Keppra 500mg BID, with extra 500mg to be given after each hemodialysis. Recommend for patient to establish care after discharge with outpatient neurologist to follow patient. - Recommend giving ativan 2mg stat for a generalized tonic clonic seizure lasting longer than 2 minutes. Please page neurology stat in case of seizure. - Recommend further workup of possible infections per primary team, as patient had an elevated WBC on admission. - Will continue to follow patient Vel Kelly MD Neurology
--- NOTE | 2019-06-21 14:27 | Progress Note ---
Assessment and Plan New-onset seizure Endstage renal disease on dialysis Sleep apnea on Cpap COPD, stable Plan IV Ativan as needed for seizure Consult neurology, obtain EEG/MRI brain, CT head negative Consulted renal for HD Continue appropriate outpatient medications Start CPAP, DVT prophylaxis Brief History: 49-year-old male with a history of menstrual sternal disease sleep apnea, COPD with the recent history of cardiac arrest at [facility] [place] presents to the hospital after having an acute episode of seizure. Radiological data: CT head: No active process Hospitalist Physical exam: GENERAL: white male lying on bed appeared to be in no discomfort. HEENT: Normocephalic. Atraumatic. No conjunctival congestion or icterus. Patient has moist mucous membranes. NECK: Supple. Trachea midline. CHEST/LUNGS: Clear to auscultated bilaterally, breathing nonlabored. No wheezes crackles or rhonchi. HEART/CARDIOVASCULAR: Regular in rate and rhythm. S1 and S2 positive. ABDOMEN: Abdomen is soft, nontender. Patient has normal bowel sounds. SKIN: There is no rash. Warm and dry. NEURO: No focal motor deficit. Follows command. MUSCULOSKELETAL: No joint effusion or tenderness. EXTRIMITY: No edema, no cyanosis or clubbing. PSYCH: Cooperative. Subjective Date of service: 06/21/19 Interval history: Patient seen and examined. Medical records and medication list reviewed. No acute event overnight noted by the RN. Patient denies any chest pain or difficulty breathing. Patient is tolerating diet. States that he had another seizure episodes about 2 months ago, not on any AED at home now Discussed plan of care at bedside with patient. Objective - Constitutional Vitals: Vital Signs - 12hr 06/21/19 06/21/19 06/21/19 05:44 09:59 10:04 Temperature 97.8 F Pulse Rate 86 Pulse Rate [ 90 Anterior Bilateral Throughout] Respiratory 16 Rate Respiratory 16 Rate [Anterior Bilateral Throughout] Blood Pressure 91/47 O2 Sat by Pulse 92 66 L Oximetry 06/21/19 06/21/19 06/21/19 10:07 11:47 13:04 Temperature 98.6 F Pulse Rate 94 H Pulse Rate [ Anterior Bilateral Throughout] Respiratory 18 Rate Respiratory Rate [Anterior Bilateral Throughout] Blood Pressure 78/35 100/66 O2 Sat by Pulse 95 96 Oximetry - Labs CBC & Chem 7: 06/21/19 05:55 06/21/19 05:55 Labs: Abnormal lab results 06/20/19 06/20/19 06/20/19 Range/Units 17:39 17:39 17:39 WBC 13.6 H (4.5-11.0) K/mm3 RBC 2.82 L (3.65-5.03) M/mm3 Hgb 8.7 L (11.8-15.2) gm/dl Hct 25.2 L (35.5-45.6) % MCHC 35 H (32-34) % Lymph % (Auto) 10.3 L (13.4-35.0) % Seg Neutrophils % 81.6 H (40.0-70.0) % Seg Neutrophils # 11.1 H (1.8-7.7) K/mm3 Sodium 133 L (137-145) mmol/L Chloride 91.4 L (98-107) mmol/L BUN 40 H (9-20) mg/dL Creatinine 6.1 H (0.8-1.5) mg/dL Glucose 105 H (75-100) mg/dL AST < 5 L (5-40) units/L ALT < 5 L (7-56) units/L Ammonia (25-60) umol/L Albumin 3.8 L (3.9-5) g/dL Salicylates < 0.3 L (2.8-20.0) mg/dL Acetaminophen (10.0-30.0) ug/mL 06/20/19 06/20/19 06/21/19 Range/Units 17:39 17:39 05:55 WBC (4.5-11.0) K/mm3 RBC 2.76 L (3.65-5.03) M/mm3 Hgb 8.6 L (11.8-15.2) gm/dl Hct 24.9 L (35.5-45.6) % MCHC 35 H (32-34) % Lymph % (Auto) (13.4-35.0) % Seg Neutrophils % 73.3 H (40.0-70.0) % Seg Neutrophils # (1.8-7.7) K/mm3 Sodium (137-145) mmol/L Chloride (98-107) mmol/L BUN (9-20) mg/dL Creatinine (0.8-1.5) mg/dL Glucose (75-100) mg/dL AST (5-40) units/L ALT (7-56) units/L Ammonia 83.0 H (25-60) umol/L Albumin (3.9-5) g/dL Salicylates (2.8-20.0) mg/dL Acetaminophen < 5.0 L (10.0-30.0) ug/mL 06/21/19 Range/Units 05:55 WBC (4.5-11.0) K/mm3 RBC (3.65-5.03) M/mm3 Hgb (11.8-15.2) gm/dl Hct (35.5-45.6) % MCHC (32-34) % Lymph % (Auto) (13.4-35.0) % Seg Neutrophils % (40.0-70.0) % Seg Neutrophils # (1.8-7.7) K/mm3 Sodium 135 L (137-145) mmol/L Chloride 93.3 L (98-107) mmol/L BUN 49 H (9-20) mg/dL Creatinine 7.5 H (0.8-1.5) mg/dL Glucose (75-100) mg/dL AST (5-40) units/L ALT (7-56) units/L Ammonia (25-60) umol/L Albumin (3.9-5) g/dL Salicylates (2.8-20.0) mg/dL Acetaminophen (10.0-30.0) ug/mL
--- NOTE | 2019-06-21 14:59 | XRay Report ---
CHEST 1 VIEW INDICATION: aspiration. COMPARISON: None FINDINGS: Support devices: None. Heart: Within normal limits. Lungs/Pleura: No acute air space or interstitial disease. Additional findings: None. IMPRESSION: No acute findings. Signer Name: Jah Hurtado Jr, MD Signed: 06/21/2019 2:55 PM Workstation Name: [id number]
[2019-06-21] MEDS ORDERED: KEPPRA 750 MG in D5W 100 ML IV SCH (15:00)
[2019-06-21 21:02] LABS: Hepatitis B Surface Antigen Non-Reactive (Negative); Hepatitis C Virus Antibody Non-Reactive (NonReactive)
--- NOTE | 2019-06-21 21:38 | Magnetic Resonance Report ---
MR brain wo con INDICATION / CLINICAL INFORMATION: 49 years Male; seizure. TECHNIQUE: Multiplanar, multisequence MR images of the brain were obtained. COMPARISON: CT head - 06/20/2019 FINDINGS: BRAIN / INTRACRANIAL CONTENTS: No acute hemorrhage, mass effect, midline shift, hydrocephalus, or acu te, large territorial infarct. No chronic infarct or atrophy. Mild, nonspecific white matter disease seen in the cerebral hemispheres. Hippocampal regions are grossly normal in appearance on high-resolu tion coronal T2-weighted imaging. CRANIOCERVICAL JUNCTION: No significant abnormality. VASCULAR FLOW-VOIDS: No significant abnormality. ORBITS: No significant abnormality of visualized orbits. SINUSES / MASTOIDS: Mild to moderate mucosal thickening seen in the ethmoids. ADDITIONAL FINDINGS: None. IMPRESSION: 1. No focal mass, hemorrhage, hydrocephalus, or acute ischemia. Signer Name: Channing Ascencio MD, III Signed: 06/21/2019 9:34 PM Workstation Name: [id number]
[2019-06-21] MEDS: SODIUM BICARBONATE PO SCH (21:41)
[2019-06-21] MEDS: KEPPRA 500 MG in D5W 100 ML IV SCH (23:13)
[2019-06-22] MEDS: DUONEB *Not for PRN Use IH SCH ×3 (02:20→14:08)
[2019-06-22] MEDS: NEURONTIN PO SCH ×2 (05:32→14:00)
[2019-06-22] MEDS: NORCO 7.5/325 PO PRN (08:35)
[2019-06-22] MEDS: SODIUM BICARBONATE PO SCH (09:54)
[2019-06-22] MEDS: NORVASC PO SCH (09:54)
[2019-06-22] MEDS: ELIQUIS PO SCH (09:54)
[2019-06-22] MEDS: SODIUM CHLORIDE FLUSH SYRINGE 10 ML IV SCH (09:55)
[2019-06-22] MEDS ORDERED: PRAVACHOL PO SCH (10:00)
[2019-06-22] MEDS ORDERED: VITAMIN A PO SCH (10:00)
--- NOTE | 2019-06-22 11:12 | Discharge Summary ---
Providers - Providers Date of Admission: 06/20/19 22:02 Date of discharge: 06/22/19 Attending physician: BO DUBON 06/21/19 00:07 Consult to Physician [CONS] Routine Comment: Consulting Provider: YUDI MONROE Physician Instructions: Reason For Exam: sz new onset 06/21/19 05:22 Consult to Physician [CONS] Routine Comment: Consulting Provider: WING MONROE Physician Instructions: Reason For Exam: esrd [facility] Condition: Stable Pertinent studies: CT head/MRI brain, CXR Hospital course: Discharge diagnosis: New-onset seizure, placed on keppra Endstage renal disease on dialysis/Failed renal transplant Sleep apnea on Cpap COPD, stable Leukocytosis likely due to reactive, no sign of infection, trended down Recent h/o DVT, on eliquis Disposition: DC-01 TO HOME OR SELFCARE Time spent for discharge: 34 minutes Core Measure Documentation - Palliative Care Palliative Care/ Comfort Measures: Not Applicable - Core Measures Any of the following diagnoses?: history only Exam - Constitutional Vitals: Temp Pulse Resp BP Pulse Ox 98.6 F 89 18 93/45 99 06/22/19 05:14 06/22/19 08:00 06/22/19 08:00 06/22/19 05:14 06/22/19 08:42 Plan Activity: advance as tolerated Weight Bearing Status: Non-Weight Bearing Diet: renal Special Instructions: record daily BP diary Additional Instructions: Please take keppra 500mg twice a day, and take extra 500mg after each dialysis. Follow up with: CHELLE MORENODONALDSON MD CARLENE [Primary Care Provider] - 7 Days MARIA ALVAREZ MD [Staff Physician] - 7 Days Prescriptions: levETIRAcetam [Keppra TAB] 500 mg PO BID #90 tablet
[2019-06-22] MEDS: KEPPRA 500 MG in D5W 100 ML IV SCH (11:49)
--- NOTE | 2019-06-22 13:27 | Progress Note ---
Subjective Interval history: Patient was seen today for follow-up on multiple renal related issues He is due for dialysis today Outpatient days are Thursday and Thursday Events over 24 hours were noted Vitals intake output medications were reviewed Allergies: Reviewed Social/family history: Reviewed Physical examination: Gen.: No acute distress HEENT: Oral mucosa moist, no icterus Neck: Supple no thyromegaly maass or JVD Chest: Clear to auscultation Heart: Regular rate and rhythm S1-S2 heard no S3-S4 Abdomen: Soft nontender no suprapubic masses nor organomegaly Extremity: Dry skin less than 1+ edema,No petechial rashes Psych: No evidence of any agitation and aggression noted Neurological: Alert awake Assessment and plan End-stage renal disease: Patient will continue with hemodialysis treatment on Thursday, scheduled as tolerated Discussed with dialysis nurse to hemodialyze him today We will monitor hemodynamics closely while on dialysis dialysis nurse to monitor blood pressure and make sure systolic blood pressure is not below 100 and heart rate is not above 100, We will dialyze him for 4 hours alternative filtrating as tolerated Patient was instructed to restrict fluid intake His current access is a graft in his right thigh he has complicated graft issues and will need to follow up with, vascular surgery Anemia and end-stage renal disease: To monitor and follow, erythropoietin as required goal hemoglobin dialysis patients usually occurring 10 and 12 Secondary hyperparathyroidism: Monitor phosphorus and PTH and adjust binders as needed Diet and nutrition: Fluid restriction 1200 mL per day, high-protein diet may benefit from nutrition consultation , patient is protein intake should be 1.5 g per KG body weight Hypertension and volume continue to monitor, educated about fluid restriction so dium restriction Dialysis diet plan was discussed with the patient for end-stage renal disease care Patient was also educated about hospital-related comorbidities Patient does exhibit good understanding of the renal related issues Patient has been adequately counseled and educated regarding all the renal related issues and does have a good understanding Lab results as well as renal progress was discussed with patient and simple French We will continue to follow and make recommendation from renal standpoint. For any questions please call me at: [phone] Objective - Vital Signs Vital signs: Vital Signs - 12hr 06/22/19 06/22/19 06/22/19 02:22 05:14 08:00 Temperature 98.6 F Pulse Rate 90 Pulse Rate [ 89 89 Anterior Bilateral Throughout] Respiratory 20 Rate Respiratory 18 18 Rate [Anterior Bilateral Throughout] Blood Pressure 93/45 O2 Sat by Pulse 93 Oximetry 06/22/19 06/22/19 08:42 12:02 Temperature 97.7 F Pulse Rate 79 Pulse Rate [ Anterior Bilateral Throughout] Respiratory 18 Rate Respiratory Rate [Anterior Bilateral Throughout] Blood Pressure 105/52 O2 Sat by Pulse 99 90 Oximetry - Lab 06/21/19 05:55 06/21/19 05:55 Most recent lab results Calcium 8.5 mg/dL (8.4-10.2) 06/21/19 05:55 Medications & Allergies - Medications Allergies/Adverse Reactions: Allergies erythromycin base Allergy (Unknown, Verified 03/30/17 08:08) Unknown Home Medications: Home Medications Medication Instructions Recorded Confirmed Last Taken Type Pravastatin Sodium 40 mg PO QDAY 08/30/13 10/09/16 09/28/16 22:00 History 40mg Sodium Bicarbonate 650 mg PO BID 08/30/13 10/09/16 09/29/16 08:00 History 650mg cycloSPORINE [SandIMMUNE] 75 mg PO BID 08/30/13 10/09/16 09/29/16 08:00 History Ergocalciferol [Vitamin D2] 1 cap PO QWEEK 08/20/16 10/09/16 09/29/16 08:00 History 1 CAP Zolpidem Tartrate 5 mg PO QDAY 08/20/16 10/09/16 09/25/16 History HYDROcodone/APAP 7.5-325 [[place] 1 each PO Q6HR PRN #60 tablet 08/25/16 10/09/16 09/17/16 Rx 7.5-325 mg TAB] Vitamin A 50,000 unit PO DAILY 14 Days 09/25/16 10/09/16 09/29/16 08:00 Rx capsule [id number] Apixaban [Eliquis] 5 mg PO BID 09/29/16 10/09/16 09/28/16 22:00 History 5MG Gabapentin [Neurontin] 100 mg PO Q8HR #90 capsule 10/17/16 Unknown Rx amLODIPine [Norvasc] 10 mg PO QDAY #30 tablet 10/17/16 Unknown Rx levETIRAcetam [Keppra TAB] 500 mg PO BID #90 tablet 06/22/19 Unknown Rx Active Medications: Generic Name Dose Route Start Last Admin Trade Name Freq PRN Reason Stop Dose Admin Acetaminophen 650 mg 06/21/19 00:07 Tylenol PO Q4H PRN Pain MILD(1-3)/Fever >100.5/STEELE Acetaminophen/Hydrocodone Bitart 1 each 06/21/19 11:11 06/22/19 08:35 [place] 7.5/325 PO 1 each Q6HR PRN Administration Pain, Moderate (4-6) Albuterol/Ipratropium 1 ampul 06/21/19 02:00 06/22/19 08:41 Duoneb *Not For Prn Use* IH 1 ampul Q6HRT KAREN Administration Amlodipine Besylate 10 mg 06/21/19 12:00 06/22/19 09:54 Norvasc PO Not Given DAILY KAREN Apixaban 5 mg 06/21/19 12:00 06/22/19 09:54 Eliquis PO 5 mg BID KAREN Administration Protocol Ergocalciferol 50,000 unit 06/26/19 10:00 Vitamin D2 PO QWEEK KAREN Gabapentin 100 mg 06/21/19 14:00 06/22/19 05:32 Neurontin PO 100 mg Q8HR KAREN Administration Levetiracetam 500 mg/ Dextrose 105 mls @ 400 mls/hr 06/21/19 22:00 06/22/19 11:49 IV 400 mls/hr Q12HR KAREN Administration Lorazepam 1 mg 06/20/19 22:03 Ativan IV Q4H PRN Seizures Miscellaneous Medication 50,000 unit 06/22/19 10:00 Vitamin A [Vitamin A] PO DAILY KAREN Ondansetron HCl 4 mg 06/21/19 00:07 Zofran IV Q4H PRN Nausea And Vomiting Pravastatin Sodium 40 mg 06/22/19 10:00 06/22/19 09:54 Pravachol PO 40 mg QDAY KAREN Administration Sodium Bicarbonate 650 mg 06/21/19 22:00 06/22/19 09:54 Sodium Bicarbonate PO 650 mg BID KAREN Administration Sodium Chloride 10 ml 06/21/19 10:00 06/22/19 09:55 Sodium Chloride Flush Syringe 10 Ml IV 10 ml BID KAREN Administration Sodium Chloride 10 ml 06/21/19 00:07 Sodium Chloride Flush Syringe 10 Ml IV PRN PRN LINE FLUSH
[2019-06-22] MEDS ORDERED: NACL 0.9% 100 ML IV PRN (14:49)
[2019-06-22] MEDS ORDERED: ALBURX 25% (ALBUMIN) IV PRN (14:49)
--- NOTE | 2019-06-22 16:04 | Progress Note ---
Assessment and Plan Patient is a 49 y/o man w/ a h/o HTN, ESRD on HD, h/o renal transplant, YFN, COPD, who p/w a seizure. According to the patient's clinical findings, it is likely that he has had a seizure. Supporting this diagnosis is the description of the event described. Further, patient had just finished dialysis, which could cause change in electrolyte balance, and lower seizure threshold. Further, it was mentioned that he potentially had another similar event 2 months ago. Plan: 1. Seizure: -EEG did not reveal any epileptiform activity. -CT head unremarkable. -Likely etiology is change in electrolytes with recent HD. Would recommend longer and slower HD sessions, as to decrease abrupt changes in volume status and electrolytes. - Discussed with patient regarding starting AED, and patient has agreed with the plan. Discussed with patient regarding seizure precautions and no driving until cleared by DMV/DPS, and patient agreed and accepted this. - Cont. Keppra 500mg BID, with extra 500mg to be given after each hemodialysis. -Recommend for patient to establish care after discharge with outpatient neurologist to follow patient. - Recommend giving ativan 2mg stat for a generalized tonic clonic seizure lasting longer than 2 minutes. Please page neurology stat in case of seizure. - Recommend further workup of possible infections per primary team, as patient had an elevated WBC on admission. - Will sign off. Please call with any questions. Vel Kelly MD Neurology Subjective Date of service: 06/22/19 Principal diagnosis: Seizure Interval history: No acute events overnight. No seizures noted. Objective - Vital Sign Vital Signs - 12hr 06/22/19 06/22/19 06/22/19 05:14 08:00 08:42 Temperature 98.6 F Pulse Rate 90 Pulse Rate [ 89 Anterior Bilateral Throughout] Respiratory 20 Rate Respiratory 18 Rate [Anterior Bilateral Throughout] Blood Pressure 93/45 O2 Sat by Pulse 93 99 Oximetry 06/22/19 06/22/19 06/22/19 12:02 13:45 14:00 Temperature 97.7 F 97.9 F Pulse Rate 79 79 80 Pulse Rate [ Anterior Bilateral Throughout] Respiratory 18 16 Rate Respiratory Rate [Anterior Bilateral Throughout] Blood Pressure 105/52 112/70 99/64 O2 Sat by Pulse 90 Oximetry 06/22/19 06/22/19 06/22/19 14:15 14:30 14:45 Temperature Pulse Rate 83 98 H 91 H Pulse Rate [ Anterior Bilateral Throughout] Respiratory Rate Respiratory Rate [Anterior Bilateral Throughout] Blood Pressure 105/58 126/63 104/66 O2 Sat by Pulse Oximetry 06/22/19 06/22/19 06/22/19 15:00 15:15 15:30 Temperature Pulse Rate 95 H 95 H 84 Pulse Rate [ Anterior Bilateral Throughout] Respiratory Rate Respiratory Rate [Anterior Bilateral Throughout] Blood Pressure 82/54 94/55 98/48 O2 Sat by Pulse Oximetry 06/22/19 15:45 Temperature Pulse Rate 83 Pulse Rate [ Anterior Bilateral Throughout] Respiratory Rate Respiratory Rate [Anterior Bilateral Throughout] Blood Pressure 80/50 O2 Sat by Pulse Oximetry - General Apperance Constitutional: comfortable - EENT EENT: ATNC, PERRL, mucous membranes moist, hearing intact, vision intact - Respiratory Respiratory: lungs clear, normal breath sounds - Cardiovascular Cardiovascular: regular rate, normal S1, normal S2 Extremities: no peripheral edema bilat, no clubbing, cyanosis - Gastrointestinal Gastrointestinal: normoactive bowel sounds, soft, non-tender - Integumentary Integumentary: normal - Neurologic Cranial nerve examination: PERRL, EOMI, VFF, V1/V2/V3 grossly intact, face symmetric, tongue midline, intact shoulder shrug Speech examination: intact Detailed motor examination: full strength in all marivel Motor examination - right side: 5/5: biceps, triceps, wrist flexion, wrist extension, template layout worker, hip flexors, knee extensors, dorsiflexion, toe extension (EHL), plantarflexion Motor examination - left side: 5/5: biceps, triceps, wrist flexion, wrist extension, template layout worker, hip flexors, knee extensors, dorsiflexion, toe extension (EHL), plantarflexion Detailed sensory examination: intact, light touch Reflexes: 2+: ankle, bicep, knee, tricep Cerebellar examination: other (intact b/l to FTN and HTS) - Musculoskeletal Musculoskeletal: no pain, normal range of motion - Psychiatric Psychiatric: mood/affect appropriate - Laboratory Findings CBC and BMP: 06/21/19 05:55 06/21/19 05:55 Abnormal Lab Findings: Abnormal Labs 06/20/19 06/20/19 06/20/19 17:39 17:39 17:39 WBC 13.6 H RBC 2.82 L Hgb 8.7 L Hct 25.2 L MCHC 35 H Lymph % (Auto) 10.3 L Seg Neutrophils % 81.6 H Seg Neutrophils # 11.1 H Sodium 133 L Chloride 91.4 L BUN 40 H Creatinine 6.1 H Glucose 105 H AST < 5 L ALT < 5 L Ammonia Albumin 3.8 L Salicylates < 0.3 L Acetaminophen 06/20/19 06/20/19 06/21/19 17:39 17:39 05:55 WBC RBC 2.76 L Hgb 8.6 L Hct 24.9 L MCHC 35 H Lymph % (Auto) Seg Neutrophils % 73.3 H Seg Neutrophils # Sodium Chloride BUN Creatinine Glucose AST ALT Ammonia 83.0 H Albumin Salicylates Acetaminophen < 5.0 L 06/21/19 05:55 WBC RBC Hgb Hct MCHC Lymph % (Auto) Seg Neutrophils % Seg Neutrophils # Sodium 135 L Chloride 93.3 L BUN 49 H Creatinine 7.5 H Glucose AST ALT Ammonia Albumin Salicylates Acetaminophen
--- NOTE | 2019-06-22 16:33 | Electroencephalogram Report ---
Electroencephalogram EEG Date of exam: 06/22/19 History: Patient is a 49 y/o man w/ a h/o HTN, ESRD on HD, h/o renal transplant, YFN, COPD, who p/w a seizure. Impression: Impression: Normal waking and sleep EEG. Description: The waking background shows an appropriate organization with well-defined anterior posterior voltage and frequency gradients. Posteriorly, there is a well-developed alpha rhythm of [ 8] Hz which is symmetrical and bilaterally reactive. Anteriorly, there is a pattern of lower voltage and slightly irregular theta and beta range frequencies. During drowsiness, there is attenuation of the background rhythms. The sleep background shows normal organization which is synchronous and symmetrical. Throughout, the recording there are no epileptiform abnormalities, focal or lateralizing features, or significant interhemispheric findings. Interpretation: An normal EEG does not rule out seizures or epilepsy. Clinical correlation is required for all EEGs to determine etiology of clinical episodes.
[2019-06-22 17:35] VITALS: BP 108/65
[2019-06-26] MEDS ORDERED: VITAMIN D2 PO SCH (10:00)
== END 2019-06-22 19:22 | disposition home or self-care (01) | DRG 100 ==
LOC: ED 15:26 → 3A 22:02
PROVIDERS: ADMIT Internal Medicine; ATTEND Internal Medicine
PROC: 5A09357 Assistance with Respiratory Ventilation, Less than 24 Consecutive Hours, Continuous Positive Airway Pressure (ICD-10-PCS; 2019-06-21)
PROC: 5A1D70Z Performance of Urinary Filtration, Intermittent, Less than 6 Hours Per Day (ICD-10-PCS; principal; 2019-06-22)
DX: G40.909 Epilepsy, unspecified, not intractable, without status epilepticus (principal); N18.6 End stage renal disease; I12.0 Hypertensive chronic kidney disease with stage 5 chronic kidney disease or end stage renal disease; N25.81 Secondary hyperparathyroidism of renal origin; Z94.0 Kidney transplant status; E87.2 Acidosis; G47.33 Obstructive sleep apnea (adult) (pediatric); J44.9 Chronic obstructive pulmonary disease, unspecified; D72.829 Elevated white blood cell count, unspecified; D64.9 Anemia, unspecified; K21.9 Gastro-esophageal reflux disease without esophagitis; M19.90 Unspecified osteoarthritis, unspecified site; Z99.2 Dependence on renal dialysis; Z86.718 Personal history of other venous thrombosis and embolism; Z79.01 Long term (current) use of anticoagulants; Z86.74 Personal history of sudden cardiac arrest; Z88.1 Allergy status to other antibiotic agents; Z79.899 Other long term (current) drug therapy; Z82.49 Family history of ischemic heart disease and other diseases of the circulatory system; Z83.3 Family history of diabetes mellitus
CPT/HCPCS: 36415; 70450; 70551; 71045; 80048; 80053; 80074; 80320; 82140; 84484; 85025; 93005; 93010; 94640; 94660; 94760; 95819; 96374; 96375; 96376; G0378; A9270-GY; G0480; J1650; J1953; J2270; J2405; P9047

== ENCOUNTER 2020-02-22 11:24 | Emergency (ER) | payer MEDICARE, MEDICAID ==
--- NOTE | 2020-02-22 12:25 | XRay Report ---
CHEST 1 VIEW INDICATION: cough fever sob. COMPARISON: 06/21/2019 FINDINGS: Support devices: None. Heart: Within normal limits. Lungs/Pleura: No acute air space or interstitial disease. Additional findings: None. IMPRESSION: 1. No acute findings. Signer Name: Lazaro Rich MD Signed: 02/22/2020 12:20 PM Workstation Name: [id number]
[2020-02-22 12:29] LABS: Basophils # (Auto) 0.1 K/mm3 (0.0-0.1); Basophils % (Auto) 0.8 % (0.0-1.8); Eosinophils # (Auto) 0.5 K/mm3 (0.0-0.4); Eosinophils % (Auto) 3.9 % (0.0-4.3); Hematocrit 34.4 % (35.5-45.6); Hemoglobin 11.3 gm/dl (11.8-15.2); Lymphocytes # (Auto) 2.2 K/mm3 (1.2-5.4); Lymphocytes % (Auto) 16.8 % (13.4-35.0); Mean Corpuscular HGB Conc 33 % (32-34); Mean Corpuscular Volume 98 fl (84-94); Monocytes # (Auto) 1.2 K/mm3 (0.0-0.8); Monocytes % (Auto) 9.3 % (0.0-7.3); Platelet Count 245 K/mm3 (140-440); Red Cell Distribution Width 14.8 % (13.2-15.2)
[2020-02-22] MEDS ORDERED: ACETAMINOPHEN 500 MG TAB PO ONE (12:30)
[2020-02-22 12:40] LABS: INR 0.99 (0.87-1.13)
[2020-02-22] MEDS ORDERED: NITROGLYCERIN 0.4 MG TAB SUBL SL ONE (12:42)
[2020-02-22 12:57] LABS: Calcium 8.6 mg/dL (8.4-10.2)
[2020-02-22] MEDS ORDERED: FUROSEMIDE 20 MG TAB PO ONE (13:39)
--- NOTE | 2020-02-22 13:39 | Emergency Department Report ---
ED General Adult HPI - General Chief complaint: Dyspnea/Respdistress Stated complaint: CONGESTION/SOB Time Seen by Provider: 02/22/20 11:44 Source: patient, RN notes reviewed, old records reviewed Mode of arrival: Ambulatory Limitations: No Limitations - History of Present Illness Initial comments: The patient is a 49-year-old gentleman. He has a history of end-stage renal disease on hemodialysis, Thursday, Thursday, Thursday. His r d intern is Dr. Mercedes mcpherson. He was last dialyzed on Thursday, today is Thursday. He presents to the ER today with a complaint of low-grade temperature, runny nose, sore throat, cough, with no significant shortness of breath, no chest pain, no abdominal pain. The patient reports dietary compliance, medication compliance, and he also reports no positive garza contacts, and reports that he has been self isolating. He self catheterizes for urine. Symptoms present for approximately 18 hours. They are intermittent, and do not have relieving or exacerbating factors that he is aware of, and there is no radiation. -: Gradual Severity scale (0 -10): 0 Consistency: intermittent Improves with: other Worsens with: other Associated Symptoms: other - Related Data Home Medications Medication Instructions Recorded Confirmed Last Taken Sodium Bicarbonate 650 mg PO BID 08/30/13 02/22/20 02/22/20 08:00 Ergocalciferol [Vitamin D2] 1 cap PO QWEEK 08/20/16 02/22/20 09/29/16 08:00 1 CAP Zolpidem Tartrate 5 mg PO QDAY 08/20/16 02/22/20 02/22/20 08:00 Previous Rx's Medication Instructions Recorded Last Taken Type HYDROcodone/APAP 7.5-325 [[place] 1 each PO Q6HR PRN #60 tablet 08/25/16 09/17/16 Rx 7.5-325 mg TAB] Vitamin A 50,000 unit PO DAILY 14 Days 09/25/16 02/22/20 08:00 Rx capsule Gabapentin 100 mg PO Q8HR #90 capsule 10/17/16 02/22/20 08:00 Rx amLODIPine 10 mg PO QDAY #30 tablet 10/17/16 02/22/20 08:00 Rx levETIRAcetam [Keppra TAB] 500 mg PO BID #90 tablet 06/22/19 02/22/20 08:00 Rx Allergies Allergy/AdvReac Type Severity Reaction Status Date / Time erythromycin base Allergy Unknown Unknown Verified 03/30/17 08:08 ED Review of Systems ROS: Stated complaint: CONGESTION/SOB Other details as noted in HPI Constitutional: fever, malaise, weakness Eyes: denies: vision change ENT: congestion Respiratory: cough, shortness of breath Cardiovascular: denies: syncope Genitourinary: denies: dysuria Musculoskeletal: as per HPI Skin: as per HPI Neurological: as per HPI Psychiatric: as per HPI Hematological/Lymphatic: as per HPI ED Past Medical Hx - Past Medical History Previous Medical History?: Yes Hx Hypertension: Yes Hx Congestive Heart Failure: No Hx Diabetes: No Hx GERD: Yes Hx Renal Disease: Yes Hx Arthritis: Yes (KNEES) Hx Asthma: No Hx COPD: Yes Additional medical history: kidney transplant 20 yr ago, renal insufficiency. Dialysis, M,W,F - Surgical History Past Surgical History?: Yes Additional Surgical History: Renal transplant x3; bladder augmentation - Social History Smoking Status: Never Smoker Substance Use Type: None - Medications Home Medications: Home Medications Medication Instructions Recorded Confirmed Last Taken Type Sodium Bicarbonate 650 mg PO BID 08/30/13 02/22/20 02/22/20 08:00 History Ergocalciferol [Vitamin D2] 1 cap PO QWEEK 08/20/16 02/22/20 09/29/16 08:00 History 1 CAP Zolpidem Tartrate 5 mg PO QDAY 08/20/16 02/22/20 02/22/20 08:00 History HYDROcodone/APAP 7.5-325 [[place] 1 each PO Q6HR PRN #60 tablet 08/25/16 02/22/20 09/17/16 Rx 7.5-325 mg TAB] Vitamin A 50,000 unit PO DAILY 14 Days 09/25/16 02/22/20 02/22/20 08:00 Rx capsule Gabapentin 100 mg PO Q8HR #90 capsule 10/17/16 02/22/20 02/22/20 08:00 Rx amLODIPine 10 mg PO QDAY #30 tablet 10/17/16 02/22/20 02/22/20 08:00 Rx levETIRAcetam [Keppra TAB] 500 mg PO BID #90 tablet 06/22/19 02/22/2020 08:00 Rx ED Physical Exam - General Limitations: No Limitations General appearance: alert, in no apparent distress - Head Head exam: Present: atraumatic, normocephalic - Eye Eye exam: Present: normal appearance, EOMI. Absent: nystagmus - ENT ENT exam: Present: normal exam, normal orophraynx, mucous membranes moist, normal external ear exam - Neck Neck exam: Present: normal inspection, full ROM. Absent: tenderness, meningismus - Respiratory Respiratory exam: Present: rales (Very faint rales noted). Absent: respiratory distress, wheezes, rhonchi, stridor - Cardiovascular Cardiovascular Exam: Present: normal rhythm, tachycardia, normal heart sounds. Absent: systolic murmur, diastolic murmur, rubs, gallop, JVD - GI/Abdominal GI/Abdominal exam: Present: soft. Absent: distended, tenderness, guarding, rebound, rigid, pulsatile mass - Rectal Rectal exam: Present: deferred - Extremities Exam Extremities exam: Present: normal inspection, full ROM, other (2+ pulses in the bilateral upper extremities. There is a right proximal femoral graft noted, without redness, pus or streaking). Absent: calf tenderness - Back Exam Back exam: Present: normal inspection. Absent: tenderness, CVA tenderness (R), CVA tenderness (L), paraspinal tenderness, vertebral tenderness - Neurological Exam Neurological exam: Present: alert, other (There is no facial droop. The tongue is midline. Extraocular movements are intact bilaterally. There is 5 out of 5 strength in bilateral upper and lower extremities. Sensation is intact to light touch bilateral upper and lower extremities. There is a normal gait.). Absent: motor sensory deficit - Psychiatric Psychiatric exam: Present: normal affect, normal mood - Skin Skin exam: Present: warm, dry, intact, normal color. Absent: rash ED Course Vital Signs 02/22/20 02/22/20 02/22/20 11:30 12:28 12:30 Temperature 98.5 F Pulse Rate 117 H Respiratory 26 H Rate Blood Pressure 163/86 O2 Sat by Pulse 94 94 91 Oximetry 02/22/20 02/22/20 12:46 13:00 Temperature Pulse Rate 111 H 105 H Respiratory 16 Rate Blood Pressure 159/79 O2 Sat by Pulse 95 97 Oximetry ED Medical Decision Making - Lab Data Result diagrams: 02/22/20 12:20 02/22/20 12:20 Vital Signs 02/22/20 02/22/20 02/22/20 11:30 12:28 12:30 Temperature 98.5 F Pulse Rate 117 H Respiratory 26 H Rate Blood Pressure 163/86 O2 Sat by Pulse 94 94 91 Oximetry 02/22/20 02/22/20 12:46 13:00 Temperature Pulse Rate 111 H 105 H Respiratory 16 Rate Blood Pressure 159/79 O2 Sat by Pulse 95 97 Oximetry Lab Results 02/22/20 02/22/20 02/22/20 Range/Units 12:20 12:20 12:20 WBC 12.9 H (4.5-11.0) K/mm3 RBC 3.50 L (3.65-5.03) M/mm3 Hgb 11.3 L (11.8-15.2) gm/dl Hct 34.4 L (35.5-45.6) % MCV 98 H (84-94) fl MCH 32 (28-32) pg MCHC 33 (32-34) % RDW 14.8 (13.2-15.2) % Plt Count 245 (140-440) K/mm3 Lymph % (Auto) 16.8 (13.4-35.0) % [place] % (Auto) 9.3 H (0.0-7.3) % Eos % (Auto) 3.9 (0.0-4.3) % Baso % (Auto) 0.8 (0.0-1.8) % Lymph # 2.2 (1.2-5.4) K/mm3 [place] # 1.2 H (0.0-0.8) K/mm3 Eos # 0.5 H (0.0-0.4) K/mm3 Baso # 0.1 (0.0-0.1) K/mm3 Seg Neutrophils % 69.2 (40.0-70.0) % Seg Neutrophils # 8.9 H (1.8-7.7) K/mm3 PT 13.2 (12.2-14.9) Sec. INR 0.99 (0.87-1.13) Sodium 138 (137-145) mmol/L Potassium 5.3 H (3.6-5.0) mmol/L Chloride 98.0 (98-107) mmol/L Carbon Dioxide 21 L (22-30) mmol/L Anion Gap 24 mmol/L BUN 49 H (9-20) mg/dL Creatinine 9.9 H (0.8-1.5) mg/dL Estimated GFR 6 ml/min BUN/Creatinine Ratio 5 % Glucose 96 (75-100) mg/dL Calcium 8.6 (8.4-10.2) mg/dL Magnesium 1.80 (1.7-2.3) mg/dL Total Bilirubin 0.30 (0.1-1.2) mg/dL AST 14 (5-40) units/L ALT 17 (7-56) units/L Alkaline Phosphatase 103 (35-129) units/L Total Creatine Kinase 106 (55-170) units/L Total Protein 7.6 (6.3-8.2) g/dL Albumin 4.0 (3.9-5) g/dL Albumin/Globulin Ratio 1.1 % - Radiology Data Radiology results: report reviewed, image reviewed Print Report Referring Physician: SUE BOSS Patient Name: CAROLYN DASH Date of : 1970 Sex: Male Report Date: 2020-02-22 Report Status: Finalized Findings [facility] [address] [place] [address] XRay Report Signed Patient: CAROLYN DASH MR#: [id number] : 1970 Acct:[id number] Age/Sex: 49 / M ADM Date: 02/22/20 Loc: ED Attending Dr: Ordering Physician: SUE BOSS MD Date of Service: 02/22/20 Procedure(s): XR chest 1V ap Accession Number(s): [id number] cc: SUE BOSS MD Fluoro Time In Minutes: CHEST 1 VIEW INDICATION: cough fever sob. COMPARISON: 06/21/2019 FINDINGS: Support devices: None. Heart: Within normal limits. Lungs/Pleura: No acute air space or interstitial disease. Additional findings: None. IMPRESSION: 1. No acute findings. Signer Name: Maria Constantino MD Signed: 02/22/2020 12:20 PM Workstation Name: [id number] Transcribed By: REF Dictated By: MARIA CONSTANTINO MD Electronically Authenticated By: MARIA CONSTANTINO MD Signed Date/Time: 02/22/20 1220 DD/ 1219 TD/TT: - Medical Decision Making Differential diagnosis, including but not limited to: Viral syndrome, pneumonia, coronavirus, fluid overload, electrolyte derangement Assessment and plan: 49-year-old gentleman with approximately 18 hours of cough, runny nose, rhinorrhea, no documented fever, saturating well on room air, x-ray of the chest clear, minimal rales on exam, does not meet criteria for h ospitalization or need for emergent dialysis. We will treat the patient supportively as if he did have coronavirus, please note that during his history and physical, I had on complete personal protective equipment. I contacted covering nephrology, Dr. Jose we will give the patient high-dose Lasix orally, and the patient could present to his dialysis clinic later on today for routine dialysis. He will need to self isolate, and follow-up with his primary care doctor for further evaluation for possible coronavirus. As per this current institutions policy, protocol procedures, we are not testing patients who are discharged for possible coronavirus. We are referring them to their primary care physicians. Critical care attestation.: If time is entered above; I have spent that time in minutes in the direct care of this critically ill patient, excluding procedure time. ED Disposition Clinical Impression: ESRD (end stage renal disease) on dialysis, Suspected COVID-19 virus infection Disposition: DC-01 TO HOME OR SELFCARE Is pt being admited?: No Does the pt Need Aspirin: No Condition: Stable Additional Instructions: Please follow-up at your outpatient dialysis center today, this has been discussed with covering nephrology, Dr. Jose. [facility] Dialysis center in the [place], [place] Address: [address] [place] [address] Hours: Please make certain to wash hands with soap and water often and thoroughly, do not touch hands to face, eyes, mouth, stayed home, self isolate and quarantine. Patient symptoms are suspicious for possible coronavirus, therefore, treatment is supportive, unless the patient develops severe chest pain, severe shortness of breath, intractable nausea or vomiting, severe fevers or chills, inability to tolerate liquid feeds, confusion, or any new, worsened or different symptoms not present on the initial emergency room evaluation. The patient should follow-up with his primary care doctor within the next 2-4 days for repeat checkup and evaluation, and to return to the emergency room if any of the aforementioned symptoms develop. Referrals: SAMIR MARIN MD [Staff Physician] - 02/22/20 ([facility] Dialysis center in the [place], [place] Address: [facility] [place] [place] [address] Hours: Open Closes 4PM )
[2020-02-22 13:57] VITALS: BP 124/80
== END 2020-02-22 14:22 | disposition home or self-care (01) ==
LOC: ED 11:24
DX: I12.0 Hypertensive chronic kidney disease with stage 5 chronic kidney disease or end stage renal disease (principal); N18.6 End stage renal disease; Z99.2 Dependence on renal dialysis; M17.0 Bilateral primary osteoarthritis of knee; J44.9 Chronic obstructive pulmonary disease, unspecified; Z94.0 Kidney transplant status; Z03.818 Encounter for observation for suspected exposure to other biological agents ruled out
CPT/HCPCS: 36415; 71045; 80053; 82550; 83735; 85025; 85610; 99284